=== PATIENT | male | born 1945 | race Caucasian/White ===

== ENCOUNTER 2019-08-24 07:42 | Emergency (ER) | payer MEDICARE, SELFPAY ==
[2019-08-24 07:50] VITALS: BP 160/93; PULSE 71; RESP 20; TEMP 36.4; O2SAT 97
--- NOTE | 2019-08-24 08:15 | ED.GENADULT ---
HPI - General Adult General Chief complaint: Skin/Abscess/Foreign Body Stated complaint: EYE SWOLLEN AND RED Source: patient and family Mode of arrival: ambulatory Limitations: no limitations History of Present Illness HPI narrative: 74-year-old male patient presents with his diagnosed with shingles some few days ago by his primary care was placed on acyclovir and gabapentin currently there is a red erythema around the right eye with right eye involvement with no blurry vision his pain level is a 1/10 currently no fevers Onset (ago): day(s) Location: head, face and eyes Severity: mild and moderate Severity scale (1-10): 1 Quality: burning Pain Consistency: constant Associated symptoms: denies other symptoms Related Data Home Medications Medication Instructions Recorded Confirmed acyclovir 800 mg PO USEASDIRECTD 08/24/19 08/24/19 amlodipine 2.5 mg PO DAILY 08/24/19 08/24/19 atorvastatin 40 mg PO DAILY 08/24/19 08/24/19 gabapentin 300 mg PO TID 08/24/19 08/24/19 Allergies Allergy/AdvReac Type Severity Reaction Status Date / Time No Known Allergies Allergy Unverified 03/17/15 11:50 Review of Systems Review of Systems: All systems reviewed & are unremarkable except as noted in HPI and below PMFSH Past Medical History Medical History Shingles Social History Social History Smoking status: Never smoker Exam Const: General: no acute distress and alert Orientation/consciousness: patient oriented x3 Limitations: altered mental status HENMT: Head: normal to inspection Eyes: Pupils: Equal, round and reactive pupils present Other: redness erythema with a few of vesicles around the periorbital region on the right with mild conjunctival injection with normal visual acuity no blurry vision. Neck: Neck: normal visual inspection Chest: Chest palpation & inspection: normal inspection of the chest Resp: Effort & Inspection: normal respiratory effort Cardio: Rate: regular rate Rhythm: regular rhythm GI: GI Palp: Yes Soft to palpation Skin: General skin exam: normal color Other: Rash around the right periorbital region with healed and scabbed over lesions on the right scalp Critical Care Time Critical Care Time Critical Care Time: No Discharge Plan Discharge Clinical Impression: Shingles, Herpes simplex ophthalmicus Patient Disposition: Home, Self-Care Condition: Stable Instructions: Antibiotic Form, Shingles (ED) Additional Instructions: continue current medication acyclovir and gabapentin, use eyedrops as directed and follow-up with primary care for referral to ophthalmology as soon as possible. Prescriptions: New ganciclovir 0.15 % gel 1 drop RIGHT EYE Q3H 7 Days Qty: 5 RF: 0 No Action atorvastatin 40 mg tablet 40 mg PO DAILY RF: 0 amlodipine 2.5 mg tablet 2.5 mg PO DAILY RF: 0 acyclovir 800 mg tablet 800 mg PO USEASDIRECTD RF: 0 gabapentin 300 mg capsule 300 mg PO TID RF: 0 Follow-up/Referrals: Alvin,JASON Centeno [Primary Care Provider] - Time of Disposition: 08:25
== END 2019-08-24 08:23 | disposition home or self-care (01) ==
PROVIDERS: Emergency Provider Emergency Medicine; PCP Physician Assistant
DX: B02.30 Zoster ocular disease, unspecified (principal)
CPT/HCPCS: 99283

== ENCOUNTER 2019-09-19 08:26 | Emergency (ER) | payer MEDICARE, SELFPAY ==
[2019-09-19 08:42] VITALS: BP 116/71; PULSE 80; RESP 18; TEMP 36.6; O2SAT 99
--- NOTE | 2019-09-19 08:42 | ED.GENADULT ---
HPI - General Adult General Chief complaint: Unspecified Stated complaint: hemmorhoids Related Data Home Medications Medication Instructions Recorded Confirmed acyclovir 800 mg PO USEASDIRECTD 08/24/19 08/24/19 amlodipine 2.5 mg PO DAILY 08/24/19 08/24/19 atorvastatin 40 mg PO DAILY 08/24/19 08/24/19 gabapentin 300 mg PO TID 08/24/19 08/24/19 Allergies Allergy/AdvReac Type Severity Reaction Status Date / Time No Known Allergies Allergy Unverified 03/17/15 11:50 [facility] Past Medical History Medical History (Updated 09/19/19 @ 08:44 by Vincenzo Rogers MD) Hyperlipidemia Hypertension Shingles Surgical History Surgical History (Updated 09/19/19 @ 08:43 by Vincenzo Rogers MD) History of nephrectomy Social History Social History Smoking status: Never smoker Discharge Plan Discharge Prescriptions: No Action atorvastatin 40 mg tablet 40 mg PO DAILY RF: 0 amlodipine 2.5 mg tablet 2.5 mg PO DAILY RF: 0 acyclovir 800 mg tablet 800 mg PO USEASDIRECTD RF: 0 gabapentin 300 mg capsule 300 mg PO TID RF: 0 ganciclovir 0.15 % gel 1 drop RIGHT EYE Q3H 7 Days Qty: 5 RF: 0
--- NOTE | 2019-09-19 09:05 | ED.ABDPAIN ---
HPI - Abdominal Pain General Chief Complaint: Unspecified Stated Complaint: hemmorhoids History of Present Illness HPI narrative: While bearing down attempting to defecate this AM pt developed intense sharp pain in the inner and outer anus region, rated #8/10. Soon after arrival in [facility]. he passed some firm, round pelllets followed by larger B.M. Very soon after defecation pt's pain subsided to ~#3/10. Pt. feeling markedly better at the time of the interview. Pt. states he goes 3-4 days or more between BMs. Related Data Home Medications Medication Instructions Recorded Confirmed amlodipine 2.5 mg PO DAILY 08/24/19 09/19/19 atorvastatin 40 mg PO DAILY 08/24/19 09/19/19 gabapentin 300 mg PO TID 08/24/19 09/19/19 Allergies Allergy/AdvReac Type Severity Reaction Status Date / Time No Known Allergies Allergy Unverified 03/17/15 11:50 Review of Systems Constitutional: Constitutional: Denies chills and Denies fever(s) Gastrointestinal: Gastrointestinal: Denies abdominal pain, Denies nausea and Denies vomiting Genitourinary: Genitourinary: Denies dysuria [facility] Past Medical History Medical History (Updated 09/20/19 @ 00:27 by Vincenzo Rogers MD) Hyperlipidemia Hypertension Shingles Surgical History Surgical History (Updated 09/19/19 @ 08:43 by Vincenzo Rogers MD) History of nephrectomy Social History Social History Smoking status: Never smoker Gender identity (if verbalized by the patient): Male Exam Const: General: no acute distress HENMT: Mouth: Yes Abnormal oral and palatal mucosa present Neck: Neck: no lymphadenopathy Resp: Auscultation: clear to auscultation bilaterally Cardio: Rate: regular rate Rhythm: regular rhythm GI: GI Palp: Yes Soft to palpation and No Tenderness to palpation present (GI) Other: no organomegaly No inguinal nodes : Other: Hemorrhoids surround the anus; red. There's no ulceration, tenderness, or thrombosis. No visible anal fissure on external exam. Digital exam: minor tenderness of the entire wall of the anus. No palpable cord. Prostate is not asymmetric, firm or nodular. It's smaller in size than other's his age. NO blood on glove. Back/Spine/Pelvis: Back: no CVA tenderness Course Course Emergency Course: No change in pain level after his BM, ~09/25. Vital Signs Vital signs: Vital Signs Temperature 36.6 C 09/19/19 08:42 Pulse Rate 80 09/19/19 08:42 Respiratory Rate 18 09/19/19 08:42 Blood Pressure 116/71 09/19/19 08:42 Pulse Oximetry 99 09/19/19 08:42 Temperature 36.6 C 09/19/19 08:42 Pulse Rate 80 09/19/19 08:42 Respiratory Rate 18 09/19/19 08:42 Blood Pressure 116/71 09/19/19 08:42 Pulse Oximetry 99 09/19/19 08:42 MDM - Abdominal Pain MDM Narrative Medical decision making narrative: No evidence of thrombosed hemorroid, anal fissure pr rectal prolapse. Pt's hx suggest constipation, stools causing painul pressure to the rectal wall. This could also be explained by valsalva causing internal and external hemorroidal venous congestion relieved after defecation. Pt. advised to sit in a warm tub and use a stool softener or high fiber diet with fluids to start having regular, softer BMs. Discharge Plan Discharge Clinical Impression: Anal or rectal pain, Constipation Patient Disposition: Home, Self-Care Condition: Stable Instructions: Constipation (ED), Hemorrhoids (ED) Additional Instructions: Daily Citrucil or daily bran from diet to keep stools regular. Sit in warm bath 3 - 4 x/day and acetaminophen 4 times daily until anal discomfort resolves. See Angelo Solorio in 2- 3 days if symptoms persist. Return if worsening. Prescriptions: No Action atorvastatin 40 mg tablet 40 mg PO DAILY RF: 0 amlodipine 2.5 mg tablet 2.5 mg PO DAILY RF: 0 gabapentin 300 mg capsule 300 mg PO TID RF: 0 Interventions: Discharge Disposit
== END 2019-09-19 09:49 | disposition home or self-care (01) ==
PROVIDERS: Emergency Provider Family Medicine; PCP Family Medicine
DX: K62.89 Other specified diseases of anus and rectum (principal); K59.00 Constipation, unspecified
CPT/HCPCS: 99281; 99282

== ENCOUNTER 2022-06-12 09:17 | Emergency (ER) | payer MEDICARE, SELFPAY ==
--- NOTE | ~2022-06-12 | XR_ITS ---
XR chest 2V DATE: 06/12/2022 11:24 INDICATION: Cough for 4 days TECHNIQUE: PA and lateral views COMPARISON: 05/24/2015 2 view chest FINDINGS: Heart size is within normal range. Is mild aortic calcification and unfolding. No hilar or mediastinal enlargement. Minimal atelectasis is suggested at the lung bases. No pulmonary infiltrate or consolidation is noted otherwise. No pleural effusion or pulmonary vascular congestion or pneumothorax. Osteopenia. Degenerative spurring of the thoracic spine. Surgical clips are noted overlying the upper posterior abdomen on the lateral view. IMPRESSION: Minimal atelectasis at the lung bases Aortic atherosclerosis Reviewed, dictated and finalized at location A. [employer]INE[employer]
[2022-06-12 09:52] VITALS: BP 154/80; PULSE 71; RESP 20; TEMP 36.4; O2SAT 95
[2022-06-12 09:56] VITALS: O2SAT 95
--- NOTE | 2022-06-12 10:43 | ED.GENADULT ---
HPI - General Adult General Chief complaint: Shortness of Breath/Dyspnea Stated complaint: SOB History of Present Illness HPI narrative: patient is a 76-year-old white male huang complains of shortness of breath with dyspnea on exertion going up hills and now at rest associated with a cough which hurts his upper abdomen. He has no history of heart or lung disease or venous thromboembolism. He has had some postnasal drip and cough associated with that he said he has had some wheezing as well. He has no problems urinating except when he has to go he has to go urgently which is not changed in last 5 years. Denies any nausea or vomiting or diarrhea or change in his bowel habits. His appetite is decreased and he has not eaten or drunk much the last 3 days symptoms started 3 days ago. Related Data Home Medications Medication Instructions Recorded Confirmed amlodipine 2.5 mg tablet 2.5 mg PO DAILY 08/24/19 09/19/19 atorvastatin 40 mg tablet 40 mg PO DAILY 08/24/19 09/19/19 gabapentin 300 mg capsule 300 mg PO TID 08/24/19 09/19/19 Allergies Allergy/AdvReac Type Severity Reaction Status Date / Time No Known Allergies Allergy Unverified 03/17/15 11:50 Review of Systems Review of Systems: All systems reviewed & are unremarkable except as noted in HPI and below Constitutional: Constitutional: Reports no additional constitutional complaints Eyes: Eyes: Reports no additional eye complaints ENT: Reports system reviewed and no additional complaints, except as documented Cardiovascular: Cardiovascular: Reports no additional cardiovascular complaints and Denies chest pain Respiratory: Respiratory: Reports no additional respiratory complaints Gastrointestinal: Gastrointestinal: Reports no additional gastrointestinal complaints Genitourinary: Genitourinary: Reports no additional male genitourinary complaints Musculoskeletal: Musculoskeletal: Reports no additional musculoskeletal complaints Integumentary/Breasts: Skin/Breast: Reports system reviewed and no additional complaints, except as docu Neurologic: Reports system reviewed and no additional complaints, except as documented Psychiatric: Psychiatric: Reports no additional psychiatric complaints PMFSH Past Medical History Medical History Hyperlipidemia Hypertension Shingles Surgical History Surgical History History of nephrectomy Social History Social History Smoking status: Never smoker Gender identity (if verbalized by the patient): Male Exam Narrative: Obese white male appears in no apparent distress head normocephalic atraumatic. Eyes conjunctiva pink sclera nonicteric. Oropharynx is clear with moist mucous membranes. Neck is supple without lymphadenopathy. Lungs are clear to auscultation without wheezes rales or rhonchi. Heart is regular rate rhythm without murmurs gallops or rubs. Abdomen is obese soft and nontender no hepatosplenomegaly or masses. Extremities no cyanosis clubbing or edema negative calf tenderness negative Homans sign bilaterally. Neurological patient is alert and oriented x4 motor and sensory grossly intact. Const: Limitations: no limitations Course Course Emergency Course: COVID and influenza A were positive. Patient got DuoNeb treatment which he said helped. EKG shows sinus rhythm normal EKG normal axis normal intervals normal EKG. Coags and D-dimer were normal creatinine is 1.33 GFR 52 calcium 8.3 BNP was 880. Chest x-ray was unremarkable influenza a and COVID was positive. Discharge instructions were discussed all questions were asked and answered and patient agreed with plan. Vital Signs Vital signs: Vital Signs Temperature 36.4 C 06/12/22 09:52 Pulse Rate 71 06/12/22 09:52 Respiratory Rate 20 06/12/22 09:52 Blood Pressure 154
--- NOTE | 2022-06-12 10:58 | ECG_ITS ---
Measurements Intervals [place] Rate: 70 P: 68 VT: 166 QRS: 68 QRSD: 97 T: 57 QT: 363 QTc: 394 Interpretive Statements SINUS RHYTHM BASELINE ARTIFACT- I, II, III, AVR, AVL, AVF, V5 NORMAL ECG NO PREVIOUS ECG AVAILABLE FOR COMPARISON Electronically Signed On 06-12-2022 16:10:40 SKIP HOIST OPERATOR by Lexx Wolf D.O.
[2022-06-12 11:00] VITALS: PULSE 70
[2022-06-12] MEDS: IPRATROPIUM 0.5 MG/ALBUTEROL SULFATE 2.5 MG AMPUL.NEB 3 ML INHALATION (11:04)
[2022-06-12 11:05] VITALS: PULSE 69; RESP 16; O2SAT 94
[2022-06-12 11:12] LABS: Basophils Absolute Auto 0.02 K/mm3 (0.00-0.10); Basophils Percent Auto 0.5 % (0.0-1.0); Eosinophils Absolute Auto 0.01 K/mm3 (0.02-0.50); Eosinophils Percent Auto 0.2 % (1.0-6.0); Hematocrit 42.4 % (37.0-46.0); Hemoglobin 14.1 g/dL (12.4-15.3); Immature Granulocyte Absolute 0.01 K/mm3 (0.00-0.00); Immature Granulocyte Percent A 0.2 % (0.0-0.0); Immature Platelet Fraction Pct 1.6 % (1.0-7.0); Lymphocytes Absolute Auto 1.54 K/mm3 (1.10-4.50); Lymphocytes Percent Auto 35.1 % (18.0-42.0); Mean Corpuscular HGB Conc 33.3 g/dL (32.0-36.0); Mean Corpuscular Hemoglobin 30.9 pg (27.0-31.0); Mean Corpuscular Volume 92.8 fL (78.0-102.0); Mean Platelet Volume 9.5 fl (8.7-11.0); Monocytes Absolute Auto 0.66 K/mm3 (0.10-0.90); Neutrophils Absolute Auto 2.2 K/mm3 (1.7-7.2); Platelet Count Result 139 K/mm3 (150-420); Red Blood Count 4.57 M/mm3 (4.70-6.10); Red Cell Distribution Width 12.7 % (11.6-14.4); White Blood Count 4.4 K/mm3 (4.8-10.8)
[2022-06-12 11:16] VITALS: PULSE 67; RESP 16
[2022-06-12 11:24] LABS: INR 1.1; Partial Thromboplastin Time 36.5 SEC (23.90-30.70); Prothrombin Time 11.5 Seconds (9.50-12.10)
[2022-06-12 11:32] LABS: Alanine Aminotransferase 33 U/L (16-63); Albumin Level 3.5 g/dL (3.4-5.0); Alkaline Phosphatase 76 U/L (46-116); Anion Gap 9 mmol/L (8-16); Aspartate Amino Transferase 21 U/L (15-37); Bilirubin,Total 0.5 mg/dL (0.00-1.00); Blood Urea Nitrogen 17 mg/dL (7-18); Calcium 8.3 mg/dL (8.5-10.1); Carbon Dioxide 26 mmol/L (21-32); Chloride 108 mmol/L (98-108); Estimated CRCL calculation 52 ml/min; Estimated Glomerular Filt Rate 52; Glucose 106 mg/dL (70-99); NT Pro B Type Natriuretic Pept 880 pg/mL (0-450); Osmolality Calculated 297 mOsm/kg (285-295); Potassium 3.9 mmol/L (3.5-5.1); Sodium 143 mmol/L (136-145); Total Protein 6.8 g/dL (6.4-8.2); Troponin I 14.1 ng/L (0.00-60.4)
[2022-06-12 11:45] LABS: Influenza A QL RT-PCR Positive (Negative); Influenza B QL RT-PCR Negative (Negative); SARS-CoV-2 RNA PCR Positive (Negative)
[2022-06-12 11:47] LABS: RSV RNA, RT-PCR Negative (Negative)
[2022-06-12 13:02] VITALS: BP 132/79; PULSE 77; RESP 20; TEMP 36.7; O2SAT 93
== END 2022-06-12 13:08 | disposition home or self-care (01) ==
PROVIDERS: Emergency Provider Emergency Medicine; PCP Family Medicine
DX: U07.1 COVID-19 (principal); J11.1 Influenza due to unidentified influenza virus with other respiratory manifestations; E78.5 Hyperlipidemia, unspecified; I10 Essential (primary) hypertension
CPT/HCPCS: 36415; 71046; 80053; 83880; 84484; 85025; 85055; 85380; 85610; 85730; 87040; 87637; 93005; 94640; 99284

== ENCOUNTER 2022-06-16 20:35 | Inpatient (IN) | payer MEDICARE, SELFPAY ==
--- NOTE | ~2022-06-16 | XR_ITS ---
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 RESULT: Lines, tubes, and devices: None. Lungs and pleura: Ill-defined, subsegmental airspace disease in the right midlung and to a lesser ex tent in the lateral left lung base, where there is minimal lateral costophrenic angle blunting. Cardiomediastinal silhouette: Stable. Other: No acute osseous or upper abdominal finding. IMPRESSION: Worsening pulmonary disease with multifocal airspace opacities that may represent atelectasis, progre ssive viral disease, or secondary infection. Possible small left pleural effusion Reviewed, dictated and finalized at location K. [employer]GRAM[employer]PL[employer] P[employer]OT IMPRESSION: Worsening pulmonary disease with multifocal airspace opacities that may represe nt atelectasis, progressive viral disease, or secondary infection. Possible sma ll left pleural effusion
[2022-06-16 21:00] VITALS: BP 126/73; PULSE 85; RESP 18; TEMP 36.6; O2SAT 93
--- NOTE | 2022-06-16 21:07 | ED.SOB ---
HPI - SOB/Dyspnea General Chief Complaint: Shortness of Breath/Dyspnea Stated Complaint: has covid and the flu Time Seen by Provider: 06/16/22 20:50 Source: patient Mode of arrival: ambulatory History of Present Illness HPI Narrative: 76-year-old male with a history of hypertension, dyslipidemia, nephrectomy with CKD presented to the ER on 06/12/2022 and was diagnosed to have COVID and influenza A. He presents to the ER with -- ongoing cough which is nonproductive -- shortness of breath no fever or chest pain. MD elicited complaint: shortness of breath and cough Onset (ago): day(s) ( For past 5 days) Context: recent illness ( recent diagnosis of COVID and influenza a) Timing: constant Severity: moderate Exacerbating factors: exertion Relieving factors: nothing Associated symptoms: denies other symptoms, cough and chest congestion Treatment prior to arrival: none Related Data Home oxygen amount: none Home Medications Medication Instructions Recorded Confirmed amlodipine 2.5 mg tablet 2.5 mg PO DAILY 08/24/19 06/16/22 atorvastatin 40 mg tablet 40 mg PO DAILY 08/24/19 06/16/22 Allergies Allergy/AdvReac Type Severity Reaction Status Date / Time No Known Allergies Allergy Verified 06/16/22 21:04 Review of Systems Review of Systems: All systems reviewed & are unremarkable except as noted in HPI and below Constitutional: Constitutional: Reports as per HPI and Reports no additional constitutional complaints Eyes: Eyes: Reports no additional eye complaints ENT: Reports system reviewed and no additional complaints, except as documented and Reports as per HPI Cardiovascular: Cardiovascular: Reports as per HPI and Reports no additional cardiovascular complaints Respiratory: Respiratory: Reports as per HPI, Reports no additional respiratory complaints, Reports chest congestion, Reports cough and Reports dyspnea Gastrointestinal: Gastrointestinal: Reports as per HPI and Reports no additional gastrointestinal complaints Genitourinary: Genitourinary: Reports no additional male genitourinary complaints and Reports as per HPI Musculoskeletal: Musculoskeletal: Reports no additional musculoskeletal complaints and Reports as per HPI Integumentary/Breasts: Skin/Breast: Reports system reviewed and no additional complaints, except as docu and Reports as per HPI Neurologic: Reports system reviewed and no additional complaints, except as documented and Reports as per HPI Psychiatric: Psychiatric: Reports no additional psychiatric complaints and Reports as per HPI Endocrine: Endocrine: Reports no additional endocrine complaints and Reports as per HPI Hematologic/Lymphatic: Hematologic/Lymphatic: Reports no additional hematologic/lymphatic complaints and Reports as per HPI Allergic/Immunologic: Allergic/Immunologic: Reports no additional allergic/immunologic complaints and Reports as per HPI PMFSH Past Medical History Medical History Hyperlipidemia Hypertension Shingles Surgical History Surgical History History of nephrectomy Social History Social History Smoking status: Never smoker Gender identity (if verbalized by the patient): Male Exam Const: General: no acute distress Nutritional Appearance: well nourished and obese Orientation/consciousness: patient oriented x3 Limitations: no limitations HENMT: Head: normal to inspection Ears: external ears normal Face/Nose/Sinus: Normal external nose present Face and sinus: normal facial exam Mouth: Yes Normal oral and palatal mucosa present Throat: posterior oropharynx normal Eyes: Conjunctivae: conjunctivae normal Pupils: Equal, round and reactive pupils present EOM: EOMs intact bilaterally Direct Ophthalmoscopy: no photophobia Neck: Neck: normal visual inspection, no lymphadenopathy and no
--- NOTE | 2022-06-16 21:14 | ECG_ITS ---
Measurements Intervals [place] Rate: 73 P: 0 [place]: 109 QRS: -7 QRSD: 96 T: -7 QT: 365 QTc: 403 Interpretive Statements SINUS RHYTHM WITH SHORT [place] INTERVAL INCOMPLETE RIGHT BUNDLE BRANCH BLOCK MINIMAL Q WAVES- INFERIOR LEADS BASELINE ARTIFACT- V2 BORDERLINE ECG COMPARED TO ECG 06/12/2022 10:58:03 NO SIGNIFICANT CHANGES Electronically Signed On 06-16-2022 23:05:39 RETORT PRE COOKER by Lexx Wolf D.O.
[2022-06-16 21:40] LABS: Base Excess ABG -1.4 mmol/L (0-2); HCO3 ABG 21.7 mmol/L (23-29); Oxygen Content ABG 19.4 %vol (16.0-22.0); Oxygen Saturation ABG 92.8 % (95-97); Oxyhemoglobin 92.3 % (94-100); PCO2 ABG 32.3 mmHg (35-45); PO2 ABG 61.8 mmHg (75-85); pH ABG 7.45 (7.35-7.45)
[2022-06-16 21:43] VITALS: PULSE 73
[2022-06-16 21:45] LABS: Hematocrit 42.2 % (37.0-46.0); Hemoglobin 14.3 g/dL (12.4-15.3); Immature Platelet Fraction Pct 1.4 % (1.0-7.0); Mean Corpuscular HGB Conc 33.9 g/dL (32.0-36.0); Mean Corpuscular Hemoglobin 30.7 pg (27.0-31.0); Mean Corpuscular Volume 90.6 fL (78.0-102.0); Mean Platelet Volume 9.5 fl (8.7-11.0); Platelet Count Result 159 K/mm3 (150-420); Red Blood Count 4.66 M/mm3 (4.70-6.10); Red Cell Distribution Width 12.5 % (11.6-14.4); White Blood Count 5.3 K/mm3 (4.8-10.8)
[2022-06-16 21:46] LABS: Device ROOM AIR; Modified Allen's Test Pass; Site Drawn LEFT RADIAL
[2022-06-16 22:00] LABS: D Dimer 0.35 mg/L (0.19-0.50); INR 1.1; Partial Thromboplastin Time 38.9 SEC (23.90-30.70); Prothrombin Time 11.7 Seconds (9.50-12.10)
[2022-06-16 22:01] LABS: Atypical Lymphocytes Present; Band Neutrophils Percent 1 % (0-6); Basophils Percent Manual 2 % (0-1); Eosinophils Percent Manual 0 % (1-6); Lymphocytes Absolute Manual 1.69 K/mm3 (1.1-4.5); Lymphocytes Percent Manual 32 % (18-44); Monocytes Absolute Manual 0.53 K/mm3 (0.1-0.90); Monocytes Percent Manual 10 % (3-9); Neutrophils Absolute Manual 2.96 K/mm3 (1.3-6.7); Neutrophils Percent Manual 55 % (46-73); Platelet Estimate Adequate (Adequate); Total Cells Counted 100
[2022-06-16 22:05] LABS: Lactic Acid Reflex 1.2 mmol/L (0.4-2.0)
[2022-06-16 22:06] LABS: Alanine Aminotransferase 36 U/L (16-63); Albumin Level 3.3 g/dL (3.4-5.0); Alkaline Phosphatase 76 U/L (46-116); Anion Gap 12 mmol/L (8-16); Aspartate Amino Transferase 23 U/L (15-37); Bilirubin,Total 0.6 mg/dL (0.00-1.00); Blood Urea Nitrogen 18 mg/dL (7-18); Calcium 8.5 mg/dL (8.5-10.1); Carbon Dioxide 25 mmol/L (21-32); Chloride 105 mmol/L (98-108); Estimated CRCL calculation 55 ml/min; Estimated Glomerular Filt Rate 56; Glucose 127 mg/dL (70-99); Lactate Dehydrogenase 189 U/L (85-227); NT Pro B Type Natriuretic Pept 162 pg/mL (0-450); Osmolality Calculated 297 mOsm/kg (285-295); Potassium 3.8 mmol/L (3.5-5.1); Sodium 142 mmol/L (136-145); Troponin I 12.6 ng/L (0.00-60.4)
[2022-06-16 22:10] VITALS: BP 152/80; PULSE 79; RESP 18; O2SAT 91
[2022-06-16 22:52] VITALS: BP 129/65; PULSE 71; RESP 18; TEMP 36.8; O2SAT 92
[2022-06-16] MEDS: OSELTAMIVIR PHOSPHATE 30 MG CAPSULE PO (23:38)
[2022-06-16 23:44] VITALS: BMI 34.0
--- NOTE | 2022-06-16 23:50 | ADMGEN ---
This patient, Albert Farooq, was admitted to 2nd Floor Room 211-1. Patient oriented to hospital policies and general routines including ID bracelet, bed and alarms, visiting hours, pain management, procedures, bathroom and other care routines, personal items, smoking policy, room service/diet, and visiting hours. Information on how to activate the Rapid Response Team has been discussed. Patient are encouraged to report perceived risks to care and to ask questions if they do not understand what they are told or what they should do.
[2022-06-17] VITALS (7 sets, daily range): BP systolic 99–147; BP diastolic 50–73; PULSE 57–77; RESP 16–20; TEMP 35.9–36.9; O2SAT 92–97
[2022-06-17] MEDS: REMDESIVIR 200 MG/NS 250 ML 200 MG/250 ML BAG 250 MG IVPB (01:23)
[2022-06-17] MEDS: ALBUTEROL SULFATE (*SP) INHALER 2 PUFF INHALATION ×3 (05:34→18:14)
[2022-06-17 05:42] LABS: Hematocrit 40.8 % (37.0-46.0); Hemoglobin 13.6 g/dL (12.4-15.3); Mean Corpuscular HGB Conc 33.3 g/dL (32.0-36.0); Mean Corpuscular Volume 90.1 fL (78.0-102.0); Mean Platelet Volume 9.8 fl (8.7-11.0); Platelet Count Result 145 K/mm3 (150-420); Red Blood Count 4.53 M/mm3 (4.70-6.10); Red Cell Distribution Width 12.4 % (11.6-14.4); White Blood Count 5.1 K/mm3 (4.8-10.8)
[2022-06-17 05:52] LABS: INR 1.1; Prothrombin Time 11.7 Seconds (9.50-12.10)
[2022-06-17 05:56] LABS: Alanine Aminotransferase 33 U/L (16-63); Alkaline Phosphatase 70 U/L (46-116); Anion Gap 9 mmol/L (8-16); Aspartate Amino Transferase 21 U/L (15-37); Bilirubin,Total 0.4 mg/dL (0.00-1.00); Blood Urea Nitrogen 19 mg/dL (7-18); Calcium 8.1 mg/dL (8.5-10.1); Carbon Dioxide 27 mmol/L (21-32); Chloride 106 mmol/L (98-108); Estimated CRCL calculation 54 ml/min; Estimated Glomerular Filt Rate 56; Glucose 106 mg/dL (70-99); Osmolality Calculated 296 mOsm/kg (285-295); Potassium 3.6 mmol/L (3.5-5.1); Sodium 142 mmol/L (136-145); Total Protein 6.6 g/dL (6.4-8.2)
[2022-06-17] MEDS: OSELTAMIVIR PHOSPHATE 30 MG CAPSULE PO ×2 (09:15→20:30)
[2022-06-17] MEDS: amLODIPine BESYLATE 2.5 MG TABLET PO (09:16)
[2022-06-17] MEDS: ENOXAPARIN 40 MG/0.4 ML SYRINGE SUB-Q (09:16)
[2022-06-17] MEDS: ATORVASTATIN 40 MG TABLET PO (09:16)
--- NOTE | 2022-06-17 13:42 | PM.IMHP ---
H&P: HPI History of Present Illness Date/Time: 06/17/22 13:42 Chief Complaint: shortness of breath dyspnea Narrative: this is a 76-year-old male that presented to our emergency department with complaints of shortness of breath. Patient has a past medical history of hypertension, dyslipidemia, and chronic kidney disease. According to patient he came to our emergency department on 06/12/2022 and was diagnosed with COVID and influenza. Patient notes that he discharged home with albuterol. Patient notes that his condition did not improve he continued to have shortness of breath so he came to arm urgency department. Patient does note that he had a on controllable cough and does have rib pain as a result of his coughing. Patient did note that he feels better, he will remain hospitalized he lives at home alone and he has returned for treatment he has outpatient failed treatment. WBC is 5.1, hemoglobin 13.6, hematocrit 40.8, platelets 145, ABG pH 7.45, CO2 32.3, PO2 61.8, and bicarb 21.7 sodium 142, potassium 3.8, BUN 18, creatinine 1.26, glucose 127, lactic acid 1.2, AST 23, total bilirubin 0.6, ALT 36, troponin 12.6, CRP 8.0, BNP 162, patient positive for influenza a COVID. The patient denies CP, palpitation, extremity numbness, lightheadedness, dizziness, constipation, chills, or fever. Review of Systems Review of Systems: A 14 organ system Review of Systems was performed and pertinent positives included in the HPI, otherwise remaining ROS is negative. [facility] Past Medical History Medical History Hyperlipidemia Hypertension Shingles Surgical History Surgical History History of nephrectomy Family History Family History (Updated 06/16/22 @ 23:54 by Mj Jordan RN) Father Cancer Mother Cancer Social History Social History Smoking status: Never smoker Alcohol intake: former Substance use type: prescription drug Lack of Transportation: No Lack of Food: Never True Current Housing: I Have Housing Concerned About Future Housing: No Difficulty Paying Gas/Electric Bills: No Difficulty Paying for Meds: No Currently Unemployed: No Education: High School Diploma/GED Difficulty w/ Childcare or Family Care: No Gender identity (if verbalized by the patient): Male Spiritual care concerns: Yes (Rastafarian) Meds Home Medications and Allergies Home Medications Medication Instructions Recorded Confirmed Type amlodipine 2.5 mg tablet 2.5 mg PO DAILY 08/24/19 06/16/22 History atorvastatin 40 mg tablet 40 mg PO DAILY 08/24/19 06/16/22 History albuterol sulfate 90 mcg/actuation 2 puff inhalation QID 10 days #6.7 06/12/22 06/16/22 Rx aerosol inhaler grams benzonatate 200 mg capsule 200 mg PO TID PRN cough #30 caps 06/18/22 Rx guaifenesin 400 mg tablet 400 mg PO Q4H PRN congestion #30 06/18/22 Rx tabs methylprednisolone 4 mg tablets in See Rx Instructions PO .COMPLEX 06/18/22 Rx a dose pack (Medrol (Yobani)) #21 ea nirmatrelvir 300 mg (150 mg See Rx Instructions PO .COMPLEX 06/18/22 Rx x2)-ritonavir 100 mg tablet,dose #30 ea pack(EUA) (Paxlovid) Allergies Allergy/AdvReac Type Severity Reaction Status Date / Time No Known Allergies Allergy Verified 06/16/22 21:04 Vital Signs Vital Signs - 24 hr 06/16/22 21:00 06/16/22 21:43 06/16/22 22:10 Temperature 97.8 F Pulse Rate 85 73 79 Respiratory Rate 18 18 Blood Pressure 126/73 152/80 H Pulse Oximetry 93 91 Oxygen Delivery Room Air Room Air 06/16/22 22:52 06/17/22 00:00 06/17/22 00:00 Temperature 98.2 F 98 F Pulse Rate 71 66 64 Respiratory Rate 18 16 Blood Pressure 129/65 127/69 Pulse Oximetry 92 92 Oxygen Delivery Room Air Room Air 06/17/22 04:00 06/17/22 04:00 06/17/22 07:48 Temperature 98.4 F 97.5 F L Pulse Rate 62 66 69 Respi
[2022-06-17] MEDS: methylPREDNISolone SOD SUCC 125 MG VIAL 80 MG IV PUSH ×2 (14:28→21:05)
[2022-06-17] MEDS: REMDESIVIR 100 MG/NS 250 ML 100 MG/250 ML BAG 250 MG IVPB (22:53)
[2022-06-18] VITALS: BP 130/73; PULSE 64; RESP 18; TEMP 36.3; O2SAT 92
[2022-06-18 03:47] VITALS: BP 141/71; PULSE 62; RESP 18; TEMP 36.2; O2SAT 94
[2022-06-18 05:18] LABS: Hematocrit 42.6 % (37.0-46.0); Hemoglobin 14.3 g/dL (12.4-15.3); Mean Corpuscular HGB Conc 33.6 g/dL (32.0-36.0); Mean Corpuscular Hemoglobin 29.7 pg (27.0-31.0); Mean Corpuscular Volume 88.6 fL (78.0-102.0); Mean Platelet Volume 9.8 fl (8.7-11.0); Platelet Count Result 188 K/mm3 (150-420); Red Blood Count 4.81 M/mm3 (4.70-6.10); White Blood Count 4.9 K/mm3 (4.8-10.8)
[2022-06-18] MEDS: ALBUTEROL SULFATE (*SP) INHALER 2 PUFF INHALATION ×2 (05:50)
[2022-06-18] MEDS: methylPREDNISolone SOD SUCC 125 MG VIAL 80 MG IV PUSH (05:50)
[2022-06-18 07:48] VITALS: BP 135/73; PULSE 87; RESP 16; TEMP 36.6; O2SAT 91
[2022-06-18 08:00] VITALS: PULSE 87
[2022-06-18] MEDS: amLODIPine BESYLATE 2.5 MG TABLET PO (08:17)
[2022-06-18] MEDS: ENOXAPARIN 40 MG/0.4 ML SYRINGE SUB-Q (08:18)
[2022-06-18] MEDS: ATORVASTATIN 40 MG TABLET PO (08:18)
[2022-06-18] MEDS: OSELTAMIVIR PHOSPHATE 30 MG CAPSULE PO (08:18)
[2022-06-18 09:03] LABS: Alanine Aminotransferase 37 U/L (16-63); Albumin Level 3.2 g/dL (3.4-5.0); Alkaline Phosphatase 74 U/L (46-116); Anion Gap 9 mmol/L (8-16); Aspartate Amino Transferase 20 U/L (15-37); Bilirubin,Total 0.3 mg/dL (0.00-1.00); Blood Urea Nitrogen 22 mg/dL (7-18); Calcium 8.3 mg/dL (8.5-10.1); Carbon Dioxide 27 mmol/L (21-32); Chloride 106 mmol/L (98-108); Estimated CRCL calculation 54 ml/min; Estimated Glomerular Filt Rate 55; Glucose 173 mg/dL (70-99); Osmolality Calculated 301 mOsm/kg (285-295); Potassium 3.9 mmol/L (3.5-5.1); Sodium 142 mmol/L (136-145); Total Protein 6.5 g/dL (6.4-8.2)
--- NOTE | 2022-06-18 10:42 | PM.DS ---
DS: Admitting Diagnosis Discharge Date 06/18/2022 Admitting Diagnosis COVID and influenza DS: Discharge Diagnosis Discharge Diagnosis (1) COVID-19: Code(s): U07.1 - COVID-19 Status: Acute Assessment and Plan: positive 06/12/2022 patient will discharge with paxlovid,Solu-Medrol pack, Tessalon Perles, guaifenesin and albuterol patient will need to follow up with primary care physician (2) Influenza A: Code(s): J10.1 - Influenza due to other identified influenza virus with other respiratory manifestations Status: Acute Assessment and Plan: (3) Hyperlipidemia: Code(s): E78.5 - Hyperlipidemia, unspecified Status: Acute Assessment and Plan: continue atorvastatin (4) Hypertension: Code(s): I10 - Essential (primary) hypertension Status: Acute Assessment and Plan: stable continue amlodipine vital signs is ordered will adjust medication as needed DS: Summary Hospital Course Reason for hospitalization: shortness of breath Hospital Course: this is a 76-year-old male that presented to our emergency department with complaints of shortness of breath.? Patient has a past medical history of hypertension, dyslipidemia, and chronic kidney disease.? According to patient he came to our emergency department on 06/12/2022 and was diagnosed with COVID and influenza.? Patient notes that he discharged home with albuterol.? Patient notes that his condition did not improve he continued to have shortness of breath so he came to [facility] urgency department.? patient is anxious to discharge home patient notes that he was going to discharge whether I approved of or not. I agree that patient is ready for discharge he will discharge home today. The patient denies SOB, CP, palpitation, extremity numbness, lightheadedness, dizziness, constipation, diarrhea, chills, or fever. Discharge instructions reviewed with patient, as well as provided in writing per nursing staff. The instructions also include specific and strict return/GO TO THE ER as well as f/u information. All questions have been answered, and the patient and/or family deny any further questions with discharge and discharge plan. He has no complaints he notes that his condition has improved. Time Spent with Patient Time attestation: Total time spent providing and/or coordinating discharge services: Exam Narrative: GENERAL: Grady Fox is a well-nourished, well-developed patient, in no apparent distress. HEAD: normocephalic, atraumatic. EYES: PERRL. Sclera clear/white. Vision is grossly intact. EARS: External ears normal, auditory canals clear and without drainage, TMs normal without perforation. Hearing grossly intact. NOSE: External nose normal with no obvious nasal discharge, nares without redness, no rhinorrhea. THROAT: Mucous membranes moist, posterior pharynx clear. NECK: Neck supple, non-tender without lymphadenopathy, masses or thyromegaly. CARDIOVASCULAR: Regular rate and rhythm without murmurs, gallops, or rubs. RESPIRATORY: diminished throughout GASTROINTESTINAL: Abdomen soft, non-tender, nondistended. Bowel sounds are active. No hepato-splenomegaly, or palpable masses. No guarding. SKIN: warm, intact with no suspicious lesions or rash, good texture and turgor. NEURO: awake, alert, and oriented to person, place and time. There were no obvious focal neurologic abnormalities. EXTREMITIES: Normal range of motion. No edema. No calf tenderness. DS: Data Data Completed and Pending Labs on day of discharge: Labs from last 24 hours 06/18/22 06/18/22 05:12 05:12 WBC 4.9 RBC 4.81 Hgb 14.3 Hct 42.6 MCV 88.6 MCH 29.7 MCHC 33.6 RDW 12.0 Plt Count 188 MPV 9.8 Sodium 142 Potassium 3.9 Chloride 106 Carbon Dioxide 27 Anion Gap 9 BUN 22 H Creatinine 1.27 Estim Creat Clear Calc 54 Estimated GFR 55 L Glucose 173 H Calculated [place]
--- NOTE | 2022-06-18 13:08 | PC.NURSE ---
Patient discharged with home medications. Prescriptions called to [facility]. Patient taken to private vehicle by wheelchair. ABle to transfer self to car.
--- NOTE | 2022-06-22 12:45 | PC.NURSE ---
Pt states he received and understood his discharge instructions. Pt also states the care I thought was very good .
== END 2022-06-18 12:55 | disposition home or self-care (01) | DRG 179 ==
LOC: CHSED 22:52 → CHS2ND 06-17 07:20
PROVIDERS: Nurse Practitioner; Admitting Provider Internal Medicine; Emergency Provider Internal Medicine Critical Care Medicine; PCP Family Medicine; Visit Provider Internal Medicine
DX: U07.1 COVID-19 (principal); J10.1 Influenza due to other identified influenza virus with other respiratory manifestations; E78.5 Hyperlipidemia, unspecified; N18.9 Chronic kidney disease, unspecified; Z90.5 Acquired absence of kidney; I12.9 Hypertensive chronic kidney disease with stage 1 through stage 4 chronic kidney disease, or unspecified chronic kidney disease; J10.00 Influenza due to other identified influenza virus with unspecified type of pneumonia; J18.9 Pneumonia, unspecified organism
CPT/HCPCS: 36415; 36600; 71045; 80053; 82805; 83605; 83615; 83880; 84484; 85025; 85027; 85055; 85380; 85610; 85730; 86140; 87040; 93005; 96365; 97161; 97165; 99285; A9270; J0248; J0456; J0696; J1650; J2930

== ENCOUNTER 2022-09-14 14:00 | Outpatient (CLI) | payer MEDICARE, SELFPAY ==
--- NOTE | ~2022-09-14 | XR_ITS ---
XR chest 2V 09/14/2022 14:14 Indication: Dyspnea. Covid infection. Pneumonia. Flu. Procedure: 2 view chest Comparison: 06/16/2022 Findings: Heart size upper normal. No focal air space disease, pulmonary edema, pleural effusion or s uspected pneumothorax. No acute osseous abnormality. Impression: 1: No acute cardiopulmonary disease. Reviewed, dictated and finalized at location B. [facility] Impression: 1: No acute cardiopulmonary disease.
== END 2022-09-14 14:01 | disposition home or self-care (01) ==
LOC: CHSIMG 14:03
PROVIDERS: PCP Family Medicine; Visit Provider Physician Assistant
DX: R06.09 Other forms of dyspnea (principal)
CPT/HCPCS: 71046

== ENCOUNTER 2023-01-25 10:36 | Outpatient (CLI) | payer MEDICARE, SELFPAY ==
--- NOTE | ~2023-01-25 | XR_ITS ---
Clinical Indication: Dyspnea PA and lateral views of the chest: Comparison: 09/14/2022 Findings: The lungs are clear, without evidence of focal consolidation or pleural effusion. Cardiome diastinal silhouette is within normal limits. Bones and soft tissues are unremarkable. Impression: Normal chest. Reviewed, dictated and finalized at location . Impression: Normal chest.
== END 2023-01-25 10:37 | disposition home or self-care (01) ==
PROVIDERS: PCP Physician Assistant; Visit Provider Physician Assistant
DX: R06.09 Other forms of dyspnea (principal)
CPT/HCPCS: 71046

== ENCOUNTER 2023-11-27 13:33 | Emergency (ER) | payer MEDICARE, SELFPAY ==
[2023-11-27] VITALS (7 sets, daily range): BP systolic 133–150; BP diastolic 57–86; PULSE 58–66; RESP 17–18; TEMP 36.3–36.4; O2SAT 92–96
--- NOTE | ~2023-11-27 | XR_ITS ---
EXAM: XR lumbar spine 2-3V DATE: 11/27/2023 14:41 HISTORY: Chronic low back pain radiates down both legs . COMPARISON: None available. FINDINGS: Surgical clips over the left upper quadrant. Atherosclerotic aortic calcification without e vident aneurysm. 5 nonrib-bearing lumbar-type vertebral bodies. Pedicles intact. Normal vertebral bod y alignment. Irregularity of the posterior inferior L5 endplate with vertebral body height loss. Mult ilevel mild disc space narrowing and moderate osteophytosis including bridging osteophytes at multipl e levels. Multilevel mild facet sclerosis and hypertrophy. No fracture or dislocation. IMPRESSION: Chronic appearing likely degenerative L5 inferior endplate irregularity and height loss. Multilevel moderate degenerative disc disease. Multilevel mild facet arthropathy Reviewed, dictated and finalized at location K. IMPRESSION: Chronic appearing likely degenerative L5 inferior endplate irregula rity and height loss. Multilevel moderate degenerative disc disease. Multilevel mild facet arthropathy
[2023-11-27] MEDS: dexAMETHasone 2 MG TABLET 6 MG PO (14:16)
[2023-11-27] MEDS: HYDROcodone/acetaminophen (*CRX) 10-325 MG TABLET 1 TAB PO (14:16)
[2023-11-27] MEDS: CYCLOBENZAPRINE HCL 10 MG TABLET PO (14:16)
--- NOTE | 2023-11-27 14:53 | ED.BACK ---
HPI - Back Pain/Injury General Chief Complaint: Back Pain/Injury Stated Complaint: back pain Time Seen by Provider: 11/27/23 13:33 Source: patient Mode of arrival: ambulatory Limitations: no limitations History of Present Illness HPI Narrative: patient is a 78-year-old male with a significant past medical history presents today with lumbar pain. Patient has severe lumbar pain 10/10 that started today. Patient was seen by chiropractor and had manipulation done and then the pain got very bad. He has had back pain for about 3 years now. The pain has gotten worse the last couple of months. She has been going to the chiropractor for last couple of months as well. Chiropractor has never done any imaging until he has some to his last appointment and said he does have osteoarthritis but still perform Manipulation techniques. MD elicited complaint: back pain Pertinent past history: prior back pain Onset (ago): day(s) Timing: constant Severity: severe Pain scale (0-10): 10 Similar Symptoms Previously: Yes Quality: sharp and stabbing Location: lumbar spine Radiation: buttocks, left leg below the knee and right leg below the knee Exacerbating factors: movement Relieving factors: immobilization and medication Associated symptoms: difficulty walking Treatments prior to arrival: NSAIDS Work related injury: No Related Data Home Medications Medication Instructions Recorded Confirmed amlodipine 2.5 mg tablet 2.5 mg PO DAILY 08/24/19 11/27/23 atorvastatin 40 mg tablet 40 mg PO DAILY 08/24/19 11/27/23 Allergies Allergy/AdvReac Type Severity Reaction Status Date / Time No Known Allergies Allergy Verified 11/27/23 13:49 Review of Systems Review of Systems: All systems reviewed & are unremarkable except as noted in HPI and below Constitutional: Constitutional: Reports as per HPI and Reports no additional constitutional complaints Eyes: Eyes: Reports no additional eye complaints ENT: Reports system reviewed and no additional complaints, except as documented Cardiovascular: Cardiovascular: Reports no additional cardiovascular complaints Respiratory: Respiratory: Reports no additional respiratory complaints Gastrointestinal: Gastrointestinal: Reports no additional gastrointestinal complaints Genitourinary: Genitourinary: Reports no additional male genitourinary complaints Musculoskeletal: Musculoskeletal: Reports as per HPI, Reports back pain and Reports arthralgias Integumentary/Breasts: Skin/Breast: Reports system reviewed and no additional complaints, except as docu Neurologic: Reports system reviewed and no additional complaints, except as documented Psychiatric: Psychiatric: Reports no additional psychiatric complaints Endocrine: Endocrine: Reports no additional endocrine complaints Hematologic/Lymphatic: Hematologic/Lymphatic: Reports no additional hematologic/lymphatic complaints Allergic/Immunologic: Allergic/Immunologic: Reports no additional allergic/immunologic complaints PMFSH Past Medical History Medical History Hyperlipidemia Hypertension Shingles Surgical History Surgical History History of nephrectomy Family History Family History Father Cancer Mother Cancer Social History Social History Smoking status: Never smoker Alcohol intake: former Substance use type: prescription drug Lack of Transportation: No Lack of Food: Never True Current Housing: I Have Housing Concerned About Future Housing: No Difficulty Paying Gas/Electric Bills: No Difficulty Paying for Meds: No Currently Unemployed: No Education: High School Diploma/GED Difficulty w/ Childcare or Family Care: No Gender identity (if verbalized by the patient): Male Spiritual care concerns: Yes (Pr
== END 2023-11-27 16:10 | disposition home or self-care (01) ==
PROVIDERS: Emergency Provider Family Medicine; PCP Physician Assistant
DX: S39.012A Strain of muscle, fascia and tendon of lower back, initial encounter (principal); M54.16 Radiculopathy, lumbar region; X58.XXXA Exposure to other specified factors, initial encounter; I10 Essential (primary) hypertension; E78.5 Hyperlipidemia, unspecified
CPT/HCPCS: 72100; 99283; A9270; J8540

== ENCOUNTER 2023-12-14 10:55 | Outpatient (RCR) | payer MEDICARE, SELFPAY ==
--- NOTE | 2023-12-14 12:26 | OPREHPOC ---
Outpatient Therapy Plan of Care This is a Multidisciplinary Plan of Care that may contain components documented by all disciplines (PT, OT, and ST.) PT Problem 1 PT Problem #1 Knowledge Deficit PT Goal 1 Goal The patient will be independent in a home exercise program. Target Visit 4 PT Problem 2 PT Problem #2 Pain PT Goal 1 Goal The patient will report no greater than 5/10 low back pain with ambulation. Target Visit 10 PT Goal 2 Goal The patient will report no greater than 3/10 low back pain with return to daily activities and ambulation without an AD. Target Visit 20 PT Problem 3 PT Problem #3 Impaired Range of Motion PT Goal 1 Goal The patient will demonstrate at least 30 degrees of lumbar flexion AROM to improve ability to don/ doff socks and shoes. Target Visit 10 PT Problem 4 PT Problem #4 Impaired Functional Mobil PT Goal 1 Goal The patient will demonstrate less than 30% self perceived disability per the Back Index questionnaire. Target Visit 10 PT Goal 2 Goal The patient will ambulate 1,000 feet during the 6 minute walk test with the least restrictive assistive device to improve community ambulation. Target Visit 20 PT Problem 5 PT Problem #5 Impaired Strength PT Goal 1 Goal The patient will demonstrate 4/5 lower and upper abdominal strength to increase support to the spine for daily activities. Target Visit 20
--- NOTE | 2023-12-14 12:27 | PTOPEVAL1 ---
Assessment and note entered by Lashonda Díaz, PT Evaluation Information Assessment Status Evaluation Diagnosis Low Back Pain Onset 11/30/23 Subjective Information Albert Farooq reports he has lower back pain on both sides for several years and 6 months ago the pain worsened. 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 He has not been able to work the last few weeks and this am when he woke up he was having pain into the front of the thighs down to the knees. He notes increased pain when he walks. He has to use a walker when he is walking and is bent over. He is limited to walking 200 feet at this time. He also notes difficulty getting up from low chairs and stepping over the tub to shower. He was prescribed a steroid pack which did help his pain. He also takes a muscle relaxer 3 times a day. He also takes Tylenol 4 times a day for pain relief and uses a heating pad . Laying in bed also reduces pain. His doctor ordered x-rays that showed degenerative disc disease. He has seen the chiropractor and had adjustments which would help for 2-3 days. Reported Pain Level Pain Score 9: Self Report Assessment PT Clinical Summary Albert Farooq presents with chronic low back pain and had an exacerbation of symptoms about 6 months ago for unknown reasons. He is reporting a need to use a walker over the last 3 weeks due to increased pain and difficulty standing up straight . He has difficulty with walking, standing up from sitting on low surfaces, and sleeping. 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 He demonstrates tenderness along the lumbar spinous processes, decreased and painful lumbar AROM, decreased core strength, impaired gait, and decreased functional abilities. He will benefit from skilled PT to address these limitations. Plan of Care Interventions Electrical Stimulation,Gait Training,Hot Pack/Cold Pack,Manual Therapy,Mechanical Traction,Neuro Re- education,Patient/Caregiver Educati,Therapeutic Activities,Therapeutic Exercise PT Services Indicated Yes Treatment Frequency and 3 times a week for 20 visits Duration These treatments will address the objective and functional deficits as defined above. The patient will be advanced safely and appropriately in order for the pat
--- NOTE | 2024-01-05 16:29 | OPREHPOC ---
Outpatient Therapy Plan of Care This is a Multidisciplinary Plan of Care that may contain components documented by all disciplines (PT, OT, and ST.) PT Problem 1 PT Problem #1 Knowledge Deficit PT Goal 1 Goal The patient will be independent in a home exercise program. Target Visit 4 Progress Met PT Problem 2 PT Problem #2 Pain PT Goal 1 Goal The patient will report no greater than 5/10 low back pain with ambulation. Target Visit 16 Progress Not Met PT Goal 2 Goal The patient will report no greater than 3/10 low back pain with return to daily activities and ambulation without an AD. Target Visit 20 Progress Not Met PT Problem 3 PT Problem #3 Impaired Range of Motion PT Goal 1 Goal The patient will demonstrate at least 30 degrees of lumbar flexion AROM to improve ability to don/ doff socks and shoes. Target Visit 10 Progress Met PT Problem 4 PT Problem #4 Impaired Functional Mobil PT Goal 1 Goal The patient will demonstrate less than 30% self perceived disability per the Back Index questionnaire. 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 Target Visit 20 Progress Not Met PT Goal 2 Goal The patient will ambulate 1,000 feet during the 6 minute walk test with the least restrictive assistive device to improve community ambulation. met Patient will display 5/5 bilateral hip strength Patient will ambulate 1200ft or more in 6 minute walk test without an AD Patient will ambulate up and down 1 flight of steps with reciprocal mechanics and 1 hand rail hold or less. Target Visit 20 Progress Met PT Problem 5 PT Problem #5 Impaired Strength PT Goal 1 Goal The patient will demonstrate 4/5 lower and upper
--- NOTE | 2024-01-05 16:29 | PTOPPROGNS ---
Assessment and note entered by JT File, PT Evaluation Information Assessment Status Progress Diagnosis Low Back Pain Onset 11/30/23 Subjective Information he reports pain is not down the legs today. he reports the pain is at his belt line both sides. he reports the pain seems to jump around a bit. he reports getting up from a seated position is still difficult. however, once he is up he is pretty good. he reports he is no longer using a walker to stand or ambulate, and reports he does fine it easier to get out of a chair than when therapy started. Assessment PT Clinical Summary mr. benitez presents to skilled PT for his 10th skilled therapy visit. he displays significant improvement in functional activity performance and quality of life. however, he reports he still has lower back pain, and difficulty transitioning from sitting to standing. he no longer ambulates with an AD. he continues to be weak in the hips, core, and displays a fall risk per the 5x sit to stand. continued skilled PT is indicated to improve his remaining objective/functional deficits and achieve remaining goals to return to his prior level functional activity performance/ quality of life. Plan of Care Interventions Electrical Stimulation,Gait Training,Hot Pack/Cold Pack,Manual Therapy,Mechanical Traction,Neuro Re- education,Patient/Caregiver Educati,Therapeutic Activities,Therapeutic Exercise PT Services Indicated Yes Treatment Frequency and continue skilled PT 2x weekly for 10 more visits Duration to finish out initial POC These treatments will address the objective and functional deficits as defined above. The patient will be advanced safely and appropriately in order for the patient to progress towards his/her prior level of function. Additional exercises will be introduced and as well as a comprehensive home exercise program upon discharge, if needed, ?to ensure carryover of functional gains achieved in the clinic. This treatment plan has been reviewed and agreement upon by the patient.
--- NOTE | 2024-02-09 07:40 | OPREHPOC ---
Outpatient Therapy Plan of Care This is a Multidisciplinary Plan of Care that may contain components documented by all disciplines (PT, OT, and ST.) PT Problem 1 PT Problem #1 Knowledge Deficit PT Goal 1 Goal The patient will be independent in a home exercise program. Target Visit 4 Progress Met PT Problem 2 PT Problem #2 Pain PT Goal 1 Goal The patient will report no greater than 5/10 low back pain with ambulation. Target Visit 16 Progress Partially Met PT Goal 2 Goal The patient will report no greater than 3/10 low back pain with return to daily activities and ambulation without an AD. Target Visit 20 Progress Not Met PT Problem 3 PT Problem #3 Impaired Range of Motion PT Goal 1 Goal The patient will demonstrate at least 30 degrees of lumbar flexion AROM to improve ability to don/ doff socks and shoes. Target Visit 10 Progress Met PT Problem 4 PT Problem #4 Impaired Functional Mobil PT Goal 1 Goal The patient will demonstrate less than 30% self perceived disability per the Back Index questionnaire. 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 Target Visit 20 Progress Not Met PT Goal 2 Goal The patient will ambulate 1,000 feet during the 6 minute walk test with the least restrictive assistive device to improve community ambulation. met Patient will display 5/5 bilateral hip strength. met Patient will ambulate 1200ft or more in 6 minute walk test without an AD Patient will ambulate up and down 1 flight of steps with reciprocal mechanics and 1 hand rail hold or less. Target Visit 20 Progress Met PT Problem 5 PT Problem #5 Impaired Strength PT Goal 1 Goal
--- NOTE | 2024-02-09 07:41 | PTOPDC ---
Assessment and note entered by JT File, PT Evaluation Information Assessment Status Discharge Diagnosis Low Back Pain Onset 11/30/23 Subjective Information patient presents to skilled PT services today with less pain in the lower back. 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 he reports at times he continues to get symptoms across the lower back. he has not had to use his walker in days. Reported Pain Level Pain Score 3: Self Report Assessment PT Clinical Summary mr. benitez presents to skilled PT for his 20th skilled therapy visit for his lower back. he presents today with less pain in the lower back, but flare ups still from time to time. he has been educated in exercises for his core, LE's, flexibility, and back. he is compliant with his HEP, and now is retired from [employer]. he has met a few goals, and made partial progress towards other. however, he has still not met all goals for skilled PT. he will be DC'd from skilled PT services today, and continue with his HEP independent at home. Plan of Care PT Services Indicated Yes
== END 2024-02-08 10:15 | disposition home or self-care (01) ==
LOC: CHSPT 10:55
DX: M54.50 Low back pain, unspecified (principal)
CPT/HCPCS: 97012; 97014; 97110; 97140; 97161; G0283

== ENCOUNTER 2023-12-20 13:36 | Outpatient (CLI) | payer MEDICARE, SELFPAY ==
--- NOTE | ~2023-12-20 | XR_ITS ---
Clinical Indication: Dyspnea on exertion PA and lateral views of the chest: Comparison: 01/25/2023 Findings: The lungs are clear, without evidence of focal consolidation or pleural effusion. Cardiome diastinal silhouette is within normal limits. Bones and soft tissues are unremarkable. Impression: Normal chest. Reviewed, dictated and finalized at [facility]. Impression: Normal chest.
== END 2023-12-20 13:37 | disposition home or self-care (01) ==
PROVIDERS: PCP Physician Assistant; Visit Provider Physician Assistant
DX: R06.09 Other forms of dyspnea (principal)
CPT/HCPCS: 71046

== ENCOUNTER 2024-06-25 17:53 | Emergency (ER) | payer MEDICARE, SELFPAY ==
--- NOTE | ~2024-06-25 | XR_ITS ---
XR chest 2V DATE: 06/25/2024 18:28 INDICATION: Shortness of breath, cough, congestion for 5 days TECHNIQUE: 2 views COMPARISON: 12/25/2023 PA and lateral chest FINDINGS: Normal heart size. No hilar or mediastinal enlargement. Aortic arch calcification and mild thoracic aortic unfolding. No hilar or mediastinal enlargement. No pulmonary infiltrate or consolidation, pleural effusion or pulmonary vascular congestion or pneumo thorax is detected. Surgical clips overlie the posterior upper abdomen on the lateral view. Degenerative spurring of the thoracic spine. IMPRESSION: No active cardiopulmonary disease Aortic atherosclerosis Reviewed, dictated and finalized at location A. LE [facility]PER
[2024-06-25 17:58] VITALS: BP 157/88; PULSE 81; RESP 18; TEMP 36.6; O2SAT 98
--- NOTE | 2024-06-25 18:00 | ED_ITS ---
HPI - URI/Sore Throat General Chief Complaint: Upper Respiratory Infection Stated Complaint: cough Time Seen by Provider: 06/25/24 18:00 Source: patient and family Mode of arrival: ambulatory Limitations: no limitations History of Present Illness HPI Narrative: Patient is a 78-year-old male with cough and congestion associated with shortness of breath and chills for the past 5 days. He does not appear to be wiggins ving fever. He has been up and moving around and not in bed but said he feels not well and started getting worse so came to the hospital for evaluation. occasional chest pain and GERD which is being worked up as an outpatient at this time. MD elicited complaint: cough, rhinorrhea and nasal congestion Pertinent past history: other ( Hypertension and hyperlipidemia) Onset (ago): day(s) (5) Consistency: constant Severity: moderate Pain scale (0-10): 1 Description of mucous: clear and yellow Able to tolerate fluids by mouth: Yes Exacerbating factors: nothing Relieving factors: nothing Context: other ( Patient has respiratory illness getting worse and came to the hospital for evaluation) Associated symptoms: chills, myalgias, nasal congestion, cough, chest pain ( chronically and outpatient workup in progress), shortness of breath and abdominal pain ( pain after coughing of the muscle [place] only) Treatments prior to arrival: acetaminophen and ibuprofen Related Data Home Medications Medication Instructions Recorded Confirmed amlodipine 2.5 mg tablet 2.5 mg PO DAILY 08/24/19 06/25/24 atorvastatin 40 mg tablet 40 mg PO DAILY 08/24/19 06/25/24 pantoprazole 40 mg tablet,delayed 40 mg PO DAILY 06/25/24 06/25/24 release Allergies Allergy/AdvReac Type Severity Reaction Status Date / Time No Known Allergies Allergy Verified 11/27/23 13:49 Review of Systems Review of Systems: All systems reviewed & are unremarkable except as noted in HPI and below Constitutional: Constitutional: Reports no additional constitutional complaints Eyes: Eyes: Reports no additional eye complaints ENT: Reports system reviewed and no additional complaints, except as documented Cardiovascular: Cardiovascular: Reports no additional cardiovascular complaints Respiratory: Respiratory: Reports no additional respiratory complaints Gastrointestinal: Gastrointestinal: Reports no additional gastrointestinal complaints Genitourinary: Genitourinary: Reports no additional male genitourinary complaints Musculoskeletal: Musculoskeletal: Reports no additional musculoskeletal complaints Integumentary/Breasts: Skin/Breast: Reports system reviewed and no additional complaints, except as docu Neurologic: Reports system reviewed and no additional complaints, except as documented Psychiatric: Psychiatric: Reports no additional psychiatric complaints Endocrine: Endocrine: Reports no additional endocrine complaints Hematologic/Lymphatic: Hematologic/Lymphatic: Reports no additional hematologic/lymphatic complaints Allergic/Immunologic: Allergic/Immunologic: Reports no additional allergic/immunologic complaints PMFSH Past Medical History Medical History Hyperlipidemia Hypertension Shingles Surgical History Surgical History History of nephrectomy Family History Family History Father Cancer Mother Cancer Social History Social History Smoking status: Never smoker Alcohol intake: former Substance use type: prescription drug Lack of Transportation: No Lack of Food: Never True Current Housing: I Have Housing Concerned About Future Housing: No Difficulty Paying Gas/Electric Bills: No Difficulty Paying for Meds: No Currently Unemployed: No Education: High School Diploma/GED Difficulty w/ Childcare or Family Care: No Gender identity (if verbalized by the patient): Male Spiritual care concerns: Yes (Rastafari) Exam Const: General: ill appearing Nutritional Appearance: well nourished Orientation/consciousness: patient oriented x3 Limitations: no limitations HENMT: Head: normal to inspection Ears: external ears normal Face/Nose/Sinus: Normal external nose present Eyes: Conjunctivae: conjunctivae normal Pupils: Equal, round and reactive pupils present EOM: EOMs intact bilaterally Neck: Neck: normal visual inspection Chest: Chest palpation & inspection: normal inspection of the chest Resp: Effort & Inspection: normal respiratory effort, not labored, no retractions, not tachypneic and no use of accessory muscles Auscultation: clear to auscultation bilaterally, no crackles, no rales, no rhonchi, no wheezes, breath sounds present and diminished lung sounds ( bilaterally throughout) Cardio: Rate: regular rate Rhythm: regular rhythm Heart sounds: no murmurs GI: Inspection: non-distended GI Palp: Yes Soft to palpation and No Tenderness to palpation present (GI) Auscultation: bowels sounds not normal : General: Yes bladder normal to palpation Back/Spine/Pelvis: Back: no CVA tenderness Skin: General skin exam: normal color Rashes: no rashes Wounds: no wounds Neuro: General: patient oriented x3 Cranial nerves: Yes Nystagmus not present Speech: normal speech Gait exam (Neuro): Normal gait present Extrem: General: normal to inspection Psych: Mental Status: mental status grossly normal Affect: normal affect Attitude: cooperative Course Vital Signs Vital signs: Vital Signs Temperature 36.6 C 06/25/24 17:58 Pulse Rate 81 06/25/24 17:58 Respiratory Rate 18 06/25/24 17:58 Blood Pressure 157/88 H 06/25/24 17:58 Pulse Oximetry 98 06/25/24 17:58 Oxygen Delivery Room Air 06/25/24 17:58 Temperature 36.6 C 06/25/24 17:58 Pulse Rate 81 06/25/24 17:58 Respiratory Rate 18 06/25/24 17:58 Blood Pressure 157/88 H 06/25/24 17:58 Pulse Oximetry 98 06/25/24 18:08 Oxygen Delivery Room Air 06/25/24 18:08 MDM - URI/Sore Throat MDM Narrative Medical decision making narrative: patient is a 78-year-old male with upper and lower respiratory complaints for the past 5 days. We will start with COVID triple screen and chest x-ray. Lab Data Attestation: I reviewed the patient's lab results. Labs: Lab Results 06/25/24 Range/Units 18:00 Influenza A (RT-PCR) Negative (Negative) Influenza B (RT-PCR) Negative (Negative) RSV (RT-PCR) Negative (Negative) SARS-CoV-2 RNA (RT-PCR) Negative (Negative) Imaging Data Attestation: I personally reviewed and interpreted this imaging study as follows: Radiologist's impression: Chest x-ray is negative for acute process Discharge Plan Discharge Clinical Impression: Bronchitis Patient Disposition: Home, Self-Care Condition: Stable Instructions: Antibiotic Form, Acute Bronchitis (ED) Prescriptions: New azithromycin 250 mg tablet See Rx Instructions .ROUTE .COMPLEX Qty: 6 0RF Rx Instructions: For 250 mg dose pack: take 500 mg today (day 1), then 250 mg for 4 days (days 2-5) benzonatate 200 mg capsule 200 mg PO TID PRN (Reason: cough) Qty: 30 0RF No Action atorvastatin 40 mg tablet 40 mg PO DAILY amlodipine 2.5 mg tablet 2.5 mg PO DAILY cyclobenzaprine 10 mg tablet 10 mg PO TID PRN (Reason: muscle spasm) Qty: 60 0RF pantoprazole 40 mg tablet,delayed release (DR/EC) 40 mg PO DAILY Follow-up/Referrals: Alvin,JASON Centeno [Primary Care Provider] - Time of Disposition: 19:58
[2024-06-25 18:08] VITALS: O2SAT 98
[2024-06-25 18:47] LABS: SARS-CoV-2 RNA PCR Negative (Negative)
[2024-06-25 18:49] LABS: Influenza A QL RT-PCR Negative (Negative); Influenza B QL RT-PCR Negative (Negative); RSV RNA, RT-PCR Negative (Negative)
[2024-06-25] MEDS: predniSONE 20 MG TABLET 40 MG PO (20:04)
[2024-06-25 20:30] VITALS: BP 147/88; PULSE 79; RESP 17; TEMP 36.6; O2SAT 98
== END 2024-06-25 20:30 | disposition home or self-care (01) ==
PROVIDERS: Emergency Provider Emergency Medicine; PCP Physician Assistant
DX: J40 Bronchitis, not specified as acute or chronic (principal); I10 Essential (primary) hypertension; E78.5 Hyperlipidemia, unspecified; Z79.899 Other long term (current) drug therapy; Z20.822 Contact with and (suspected) exposure to COVID-19
CPT/HCPCS: 71046; 87637; 99283; J7512

== ENCOUNTER 2024-07-07 15:56 | Emergency (ER) | payer MEDICARE, SELFPAY ==
--- NOTE | ~2024-07-07 | XR_ITS ---
XR chest 2V 07/07/2024 16:13 Indication: Cough, shortness of breath and congestion Procedure: 2 view chest Comparison: 06/25/2024 and 12/20/2023 Findings: Heart size normal. Right lung clear. Left basilar atelectasis. No significant effusion or p neumothorax. No acute osseous abnormality. Impression: 1: Left basilar atelectasis. Reviewed, dictated and finalized at location B. E PROJECTIONIST Impression: 1: Left basilar atelectasis.
[2024-07-07 16:05] VITALS: BP 140/75; PULSE 83; RESP 18; TEMP 36.8; O2SAT 97
--- NOTE | 2024-07-07 16:08 | PC.NURSE ---
Covid culture sent to lab
--- NOTE | 2024-07-07 16:12 | ED_ITS ---
HPI - URI/Sore Throat General Chief Complaint: Upper Respiratory Infection Stated Complaint: cough Source: patient Mode of arrival: ambulatory Limitations: no limitations History of Present Illness HPI Narrative: a 8-year-old male with a history of hypertension, dyslipidemia, voluntary nephrectomy, GERD presents to the ED with a one-week history of -- head congestion. Patient was here on 06/25/2024 and had a negative RSV / influenza / COVID and was treated with Zithromax for an upper respiratory tract infection. -- nonproductive cough. no sputum production. Patient shortness of breath. No fever or chills no chest pain MD elicited complaint: cough and nasal congestion Onset (ago): week(s) ( 1 week) Consistency: intermittent Severity: mild Exacerbating factors: nothing Relieving factors: nothing Related Data Home Medications ?Medication ?Instructions ?Recorded ?Confirmed ?Last Taken ?Type amlodipine 2.5 mg tablet 2.5 mg PO DAILY 08/24/19 06/25/24 Unknown History atorvastatin 40 mg tablet 40 mg PO DAILY 08/24/19 06/25/24 Unknown History pantoprazole 40 mg tablet,delayed 40 mg PO DAILY 06/25/24 06/25/24 Unknown History release Allergies Allergy/AdvReac Type Severity Reaction Status Date / Time No Known Allergies Allergy Verified 07/07/24 15:59 Review of Systems 2 Review of Systems: All systems reviewed & are unremarkable except as noted in HPI and below Constitutional: Constitutional: Reports as per HPI and Reports no additional constitutional complaints Eyes: Eyes: Reports as per HPI and Reports no additional eye complaints ENT: Reports system reviewed and no additional complaints, except as documented and Reports nasal congestion Cardiovascular: Cardiovascular: Reports as per HPI and Reports no additional cardiovascular complaints Respiratory: Respiratory: Reports as per HPI, Reports no additional respiratory complaints, Reports cough and Reports dyspnea Gastrointestinal: Gastrointestinal: Reports as per HPI and Reports no additional gastrointestinal complaints Genitourinary: Genitourinary: Reports no additional male genitourinary complaints and Reports as per HPI Musculoskeletal: Musculoskeletal: Reports no additional musculoskeletal complaints and Reports as per HPI Integumentary/Breasts: Skin/Breast: Reports system reviewed and no additional complaints, except as docu and Reports as per HPI Neurologic: Reports system reviewed and no additional complaints, except as documented and Reports as per HPI Psychiatric: Psychiatric: Reports no additional psychiatric complaints and Reports as per HPI Endocrine: Endocrine: Reports no additional endocrine complaints and Reports as per HPI Hematologic/Lymphatic: Hematologic/Lymphatic: Reports no additional hematologic/lymphatic complaints and Reports as per HPI Allergic/Immunologic: Allergic/Immunologic: Reports no additional allergic/immunologic complaints and Reports as per HPI [facility] Past Medical History Medical History Hyperlipidemia Hypertension Shingles Surgical History Surgical History History of nephrectomy Family History Family History Father Cancer Mother Cancer Social History Social History Smoking status: Never smoker Alcohol intake: former Substance use type: prescription drug Lack of Transportation: No Lack of Food: Never True Current Housing: I Have Housing Concerned About Future Housing: No Difficulty Paying Gas/Electric Bills: No Difficulty Paying for Meds: No Currently Unemployed: No Education: High School Diploma/GED Difficulty w/ Childcare or Family Care: No Gender identity (if verbalized by the patient): Male Spiritual care concerns: Yes (Yazidism) Exam 2 Narrative: vitals are stable. Afebrile. Oxygen saturation 97% on room air. Const: General: healthy appearing Nutritional Appearance: well nourished Orientation/consciousness: patient oriented x3 Limitations: no limitations HENMT: Head: normal to inspection Ears: external ears normal F obinna/Nose/Sinus: Normal external nose present Face and sinus: normal facial exam Mouth: Yes Normal oral and palatal mucosa present Throat: posterior oropharynx normal Eyes: Conjunctivae: conjunctivae normal Pupils: Equal, round and reactive pupils present EOM: EOMs intact bilaterally Direct Ophthalmoscopy: no photophobia Neck: Neck: normal visual inspection, no lymphadenopathy and no meningeal signs Chest: Chest palpation & inspection: normal inspection of the chest Resp: Effort & Inspection: normal respiratory effort Auscultation: clear to auscultation bilaterally Cardio: Rate: regular rate Rhythm: regular rhythm GI: GI Palp: Yes Soft to palpation Auscultation: normal bowel sounds O ther: No tenderness/ rigidity / rebound. : General: Yes no CVA tenderness Back/Spine/Pelvis: Back: no CVA tenderness Skin: General skin exam: normal color Rashes: no rashes Neuro: General: patient oriented x3, moves all extremities, no meningeal signs, no focal motor deficits and CN's II-XI intact bilaterally Cranial nerves: Yes Nystagmus not present Speech: normal speech Gait exam (Neuro): Normal gait present Extrem: General: normal to inspection, no clubbing, cyanosis or edema and no pedal edema Psych: Mental Status: mental status grossly normal Affect: normal affect Attitude: cooperative Course Course Emergency Course: upper respiratory tract infection-- tested positive for COVID chest x-ray did not show any infiltrates evidence of CHF. Patient is saturating 97% on room air. patient has been symptomatic for 7 days and hence is not a candidate for Paxil with. Vital Signs Vital signs: Vital Signs Oxygen Delivery Room Air 07/07/24 15:56 Temperature 36.8 C 07/07/24 16:05 Pulse Rate 83 07/07/24 16:05 Respiratory Rate 18 07/07/24 16:05 Blood Pressure 140/75 07/07/24 16:05 Pulse Oximetry 97 07/07/24 16:05 Oxygen Delivery Room Air 07/07/24 16:05 MDM - URI/Sore Throat MDM Narrative Medical decision making narrative: COVID Differential Diagnosis Differential diagnosis: Likely upper respiratory infection and viral infection Lab Data 07/07/24 16:41 07/07/24 16:42 Labs: Lab Results 07/07/24 07/07/24 07/07/24 Range/Units 15:58 16:41 16:42 WBC 8.8 (4.8-10.8) K/mm3 RBC 4.85 (4.70-6.10) M/mm3 Hgb 14.8 (12.4-15.3) g/dL Hct 43.1 (37.0-46.0) % MCV 88.9 (78.0-102.0) fL MCH 30.5 (27.0-31.0) pg MCHC 34.3 (32-36) g/dL RDW 12.3 (11.6-14.4) % Plt Count 168 (150-420) K/mm3 MPV 8.8 (8.7-11.0) fl Immature Gran % (Auto) 0.2 H (0.0-0.0) % Neut % (Auto) 53.2 (50.0-70.0) % Lymph % (Auto) 31.3 (18.0-42.0) % Person % (Auto) 12.6 H (2.0-11.0) % Eos % (Auto) 2.2 (1.0-6.0) % Baso % (Auto) 0.5 (0.0-1.0) % Lymph # (Auto) 2.74 (1.10-4.50) K/mm3 Person # (Auto) 1.10 H (0.10-0.90) K/mm3 Eos # (Auto) 0.19 (0.02-0.50) K/mm3 Baso # (Auto) 0.04 (0.00-0.10) K/mm3 Abs Immat Gran (auto) 0.02 H (0.00-0.00) K/mm3 Absolute Neuts (auto) 4.67 (1.70-7.20) K/mm3 Absolute Nucleated RBC 0.00 (0.00-0.00) K/mm3 Nucleated RBC % 0.0 (0-0.0) % Sodium 140 (136-145) mmol/L Potassium 4.2 (3.5-5.1) mmol/L Chloride 102 (98-108) mmol/L Carbon Dioxide 31 (21-32) mmol/L Anion Gap 7 (4-12) mmol/L BUN 13 (7-18) mg/dL Creatinine 1.27 (0.70-1.30) mg/dL Estim Creat Clear Calc Not Reportable Estimated GFR 55 L (59 - ) Glucose 87 (70-99) mg/dL Calculated Osmolality 289 (285-295) mOsm/kg Lactic Acid 0.9 (0.4-2.0) mmol/L Calcium 9.2 (8.5-10.1) mg/dL Total Bilirubin 0.5 (0.00-1.00) mg/dL AST 14 L (15-37) U/L ALT 39 (16-63) U/L Alkaline Phosphatase 107 (46-116) U/L Troponin I 6.2 (0.00-60.4) ng/L NT-Pro-B Natriuret Pep 71 (0-450) pg/mL Total Protein 6.5 (6.4-8.2) g/dL Albumin 3.5 (3.4-5.0) g/dL Influenza A (RT-PCR) Negative (Negative) Influenza B (RT-PCR) Negative (Negative) RSV (RT-PCR) Negative (Negative) SARS-CoV-2 RNA (RT-PCR) Positive A (Negative) Discharge Plan Discharge Clinical Impression: COVID-19 Patient Disposition: Home, Self-Care Condition: Stable Instructions: Antibiotic Form, COVID-19 (Coronavirus Disease 2019) (ED) Patient Language: Latvian Prescriptions: No Action atorvastatin 40 mg tablet 40 mg PO DAILY amlodipine 2.5 mg tablet 2.5 mg PO DAILY cyclobenzaprine 10 mg tablet 10 mg PO TID PRN (Reason: muscle spasm) Qty: 60 0RF pantoprazole 40 mg tablet,delayed release (DR/EC) 40 mg PO DAILY benzonatate 200 mg capsule 200 mg PO TID PRN (Reason: cough) Qty: 30 0RF Follow-up/Referrals: Alvin,JASON Centeno [Primary Care Provider] - Time of Disposition: 17:24
--- NOTE | 2024-07-07 16:26 | ECG_ITS ---
Test Date: 2024-07-07 16:38:39 Measurements Intervals [place] Rate: 79 P: 64 [place]: 171 QRS: 55 QRSD: 102 T: 75 QT: 347 QTc: 399 Interpretive Statements SINUS RHYTHM ARTIFACT No previous ECG available for comparison Electronically Signed On 07-08-2024 16:36:16 [employer]ARD LOADER OPERATOR by Eyad Franklin M.D.
[2024-07-07 16:43] LABS: Influenza A QL RT-PCR Negative (Negative); Influenza B QL RT-PCR Negative (Negative); RSV RNA, RT-PCR Negative (Negative); SARS-CoV-2 RNA PCR Positive (Negative)
[2024-07-07 16:47] LABS: Basophils Absolute Auto 0.04 K/mm3 (0.00-0.10); Basophils Percent Auto 0.5 % (0.0-1.0); Eosinophils Absolute Auto 0.19 K/mm3 (0.02-0.50); Eosinophils Percent Auto 2.2 % (1.0-6.0); Hematocrit 43.1 % (37.0-46.0); Hemoglobin 14.8 g/dL (12.4-15.3); Immature Granulocyte Absolute 0.02 K/mm3 (0.00-0.00); Immature Granulocyte Percent A 0.2 % (0.0-0.0); Lymphocytes Absolute Auto 2.74 K/mm3 (1.10-4.50); Lymphocytes Percent Auto 31.3 % (18.0-42.0); Mean Corpuscular HGB Conc 34.3 g/dL (32-36); Mean Corpuscular Hemoglobin 30.5 pg (27.0-31.0); Mean Corpuscular Volume 88.9 fL (78.0-102.0); Mean Platelet Volume 8.8 fl (8.7-11.0); Monocytes Percent Auto 12.6 % (2.0-11.0); Neutrophils Absolute Auto 4.67 K/mm3 (1.70-7.20); Neutrophils Percent Auto 53.2 % (50.0-70.0); Platelet Count Result 168 K/mm3 (150-420); Red Blood Count 4.85 M/mm3 (4.70-6.10); Red Cell Distribution Width 12.3 % (11.6-14.4); White Blood Count 8.8 K/mm3 (4.8-10.8)
[2024-07-07 17:08] LABS: Lactic Acid Reflex 0.9 mmol/L (0.4-2.0)
[2024-07-07 17:13] LABS: Alanine Aminotransferase 39 U/L (16-63); Albumin Level 3.5 g/dL (3.4-5.0); Alkaline Phosphatase 107 U/L (46-116); Anion Gap 7 mmol/L (4-12); Aspartate Amino Transferase 14 U/L (15-37); Bilirubin,Total 0.5 mg/dL (0.00-1.00); Blood Urea Nitrogen 13 mg/dL (7-18); Calcium 9.2 mg/dL (8.5-10.1); Carbon Dioxide 31 mmol/L (21-32); Chloride 102 mmol/L (98-108); Estimated Glomerular Filt Rate 55; Glucose 87 mg/dL (70-99); NT Pro B Type Natriuretic Pept 71 pg/mL (0-450); Osmolality Calculated 289 mOsm/kg (285-295); Potassium 4.2 mmol/L (3.5-5.1); Sodium 140 mmol/L (136-145); Total Protein 6.5 g/dL (6.4-8.2); Troponin I 6.2 ng/L (0.00-60.4)
== END 2024-07-07 17:25 | disposition home or self-care (01) ==
PROVIDERS: Emergency Provider Internal Medicine Critical Care Medicine; PCP Physician Assistant
DX: U07.1 COVID-19 (principal); I10 Essential (primary) hypertension; E78.5 Hyperlipidemia, unspecified
CPT/HCPCS: 36415; 71046; 80053; 83605; 83880; 84484; 85025; 87637; 93005; 99284